=== PATIENT | female | born 1995 | race Caucasian/White ===

== ENCOUNTER → 2016-11-22 | Outpatient (CLI) | payer BC, SELFPAY ==
--- NOTE | 2016-11-22 16:45 | US ---
EXAM DESCRIPTION: Gall Bladder ultrasound. CLINICAL HISTORY: RIGHT UPPER QUADRANT PAIN COMPARISON: None. TECHNIQUE: Transabdominal scannin-dimensional and Doppler modes. FINDINGS: The gallbladder is normal in size, shape, and echogenicity, with no intraluminal stones or sludge. No fluid around the gallbladder. No wall thickening. 2.5 mm. Common bile duct caliber is 3.7 mm which is within normal limits. . No stones in the visualized portion of the duct. Not tender with transducer pressure. The liver demonstrates normal echogenicity; contour of the liver capsule is smooth where seen. No fluid around the liver. Intrahepatic biliary ducts are non-dilated. Pancreas head, body, tail normal in size and echogenicity. Pancreatic duct is not dilated. Abdominal aorta diameter not measured. IVC visualized and normal caliber. Right kidney was not imaged. Proximal ureter not visualized. IMPRESSION: Normal ultrasound of the gallbladder and ducts. No ascites. Normal ultrasound of the liver and pancreas. Normal intrahepatic ducts. Electronically signed by: Devendra Landa MD 11/22/2016 4:43 PM CDT Workstation: [id number]
== END | disposition home or self-care (01) ==
LOC: US 10:06
PROVIDERS: ATTEND Nurse Practitioner Family
DX: R10.11 Right upper quadrant pain (principal)

== ENCOUNTER → 2016-11-22 | Outpatient (CLI) | payer BC | END | disposition home or self-care (01) | LOC: LAB.O 10:22 | PROVIDERS: ATTEND Nurse Practitioner Family | DX: R10.11 Right upper quadrant pain (principal); K21.9 Gastro-esophageal reflux disease without esophagitis; Z68.39 Body mass index [BMI] 39.0-39.9, adult; Z13.220 Encounter for screening for lipoid disorders ==

== ENCOUNTER → 2018-05-03 | Outpatient (CLI) | payer BC ==
--- NOTE | 2018-05-03 09:13 | RAD ---
EXAM DESCRIPTION: Knee,Left Complete CLINICAL HISTORY: 22 years, Female, PAIN IN LEFT KNEE COMPARISON: None TECHNIQUE: Three views of the left knee including standing views FINDINGS: No fracture or dislocation. Bones appear normally mineralized with normal trabecular pattern. Normal appearance of medial and lateral compartments on frontal view. Bone island in the medial femoral condyle. Lateral view shows normal position of the patella. No patellar spurring or enthesopathy. Minimal suprapatellar knee joint effusion. Normal contour of quadriceps and patellar tendons. No abnormal patellar tilt or subluxation on patellar sunrise view. Mild lateral marginal osteophyte formation. IMPRESSION: Negative for fracture or dislocation. Electronically signed by: Johny Eli MD 05/03/2018 9:12 AM [facility]
--- NOTE | 2018-05-03 09:14 | RAD ---
EXAM DESCRIPTION: Pelvis CLINICAL HISTORY: 22 years Female, PAIN IN LEFT HIP COMPARISON: None. FINDINGS: No fracture. No dislocation. Normal bony mineralization. IMPRESSION: Negative for fracture. Electronically signed by: Johny Eli MD 05/03/2018 9:13 AM [facility]
== END ==
LOC: RAD 08:15
PROVIDERS: ATTEND Orthopaedic Surgery
DX: M25.562 Pain in left knee (principal); M25.552 Pain in left hip

== ENCOUNTER → 2019-05-06 | Outpatient (CLI) | payer BC ==
--- NOTE | 2019-05-06 11:29 | RAD ---
EXAM DESCRIPTION: Hand,Right 3 Views CLINICAL HISTORY: HAND PAIN RIGHT COMPARISON: None Available. TECHNIQUE: AP, LATERAL, AND OBLIQUE FINDINGS: The visualized bones appear well mineralized. No acute fracture or dislocation. The soft tissues appear grossly unremarkable. IMPRESSION: No acute abnormality is noted in the right hand. Electronically signed by: Alice Arguelles MD 05/06/2019 11:28 AM [facility]
== END ==
LOC: RAD 10:13
PROVIDERS: ATTEND Orthopaedic Surgery
DX: M79.641 Pain in right hand (principal)